=== PATIENT | female | born 1960 | race Caucasian/White ===

== ENCOUNTER 2025-07-14 22:21 | Emergency (ER) | payer OTHER ==
[~2025-07-14] VITALS: Ht 160 cm; Wt 63.0 kg
[2025-07-14] MEDS ORDERED: AMLODIPINE-OLM1 EAC2 PO (22:35)
[2025-07-14] MEDS ORDERED: COZAAR25 MG PO (22:35)
[2025-07-14] MEDS ORDERED: LEVO-T50 MCG PO (22:36)
[2025-07-14] MEDS ORDERED: 0.9 % SODIUM CHLORIDE 1,000 ML IV ONE (23:00)
[2025-07-14 23:53] LABS: BASO % 0.6 % (0.1-1.2); EOS # 0.21 (0.04-0.54); EOS % 2.1 % (0.7-7.0); LYMPH # 1.67 (1.18-3.74); LYMPH % 16.5 % (19.3-53.1); MEAN PLATELET VOLUME 10.30 fl (9.4-12.4); MONO # 0.55 (0.24-0.82); MONO % 5.4 % (4.7-12.5); NEUT # 7.63 (1.56-6.13); NEUT % 75.1 % (34.0-71.1); RED CELL DISTRIBUTION WIDTH 13.2 % (11.6-14.4)
[2025-07-15 00:12] LABS: INR 0.94
[2025-07-15 00:17] LABS: ALT/SGPT 38.0 U/L (12-78); AST/SGOT 31.0 U/L (15-37); BILIRUBIN TOTAL 0.24 mg/dL (0.3-1.2); BUN CREA RATIO 25.0 (7.0-25.0); CREATININE SERUM 0.91 mg/dL (0.55-1.02); GLOBULINA 2.9 G/DL (2.4-3.5); GLUCOSE FASTING 125.0 mg/dL (65-100); OSMOLALITY SERUM 301.0 MOSM/KG (275-295); PHOSPHOKINASE CREATININE 116.0 U/L (26-192)
[2025-07-15 00:27] LABS: GFR 62.64
[2025-07-15 03:39] LABS: URINE APPEARANCE Clear; URINE BILIRRUBIN Negative (NEGATIVE); URINE BLOOD Negative; URINE COLOR Yellow; URINE GLUCOSE Negative (NEGATIVE); URINE KETONE Trace (NEGATIVE); URINE LEUKOCYTE Trace; URINE NITRATE Negative; URINE PROTEIN Trace (NEGATIVE); URINE UROBILINOGEN 0.2 E.U./dl
[2025-07-15 04:20] LABS: URINE EPITHELIAL CELLS 0-4 /HPF; URINE RBC 0-3 /HPF; URINE WBC 0-2 /hpf
[2025-07-15 04:21] LABS: URINE BACTERIA MODERATE; URINE MUCUS SCANT
== END 2025-07-15 04:43 | disposition home or self-care (01) ==
LOC: ER 22:21
PROVIDERS: General Practice
DX: R55 Syncope and collapse (principal); D32.0 Benign neoplasm of cerebral meninges; I10 Essential (primary) hypertension; E03.9 Hypothyroidism, unspecified; Z88.8 Allergy status to other drugs, medicaments and biological substances
CPT/HCPCS: 36415; 70450; 71045; 93005; 96365; 96366; 99284; J3490